=== PATIENT | female | born 1985 | race Caucasian/White ===

== ENCOUNTER → 2016-05-26 | Outpatient (CLI) | payer BC ==
[2016-05-26 16:42] LABS: BASOPHILS # (AUTO) 0.05 10*3/UL; BASOPHILS % (AUTO) 0.7 % (0-1); EOSINOPHILS % (AUTO) 2.8 % (0-8); HEMATOCRIT 41.3 % (37.0-47.0); HEMOGLOBIN 14.2 g/dL (12.0-16.0); IMM GRAN % (AUTO) 0.1 % (0-5); IMM GRAN# (AUTO) 0.01 10*3/UL; LYMPHOCYTES # (AUTO) 2.35 10*3/uL; LYMPHOCYTES % (AUTO) 32.3 % (10-50); MEAN CORPUSCULAR HEMOGLOBIN 31.4 PG (27-31); MEAN CORPUSCULAR HGB CONC 34.4 g/dL (33-37); MEAN PLATELET VOLUME 10.6 FL (7.4-12.2); MONOCYTES # (AUTO) 0.54 10*3/UL (0.3-0.8); MONOCYTES % (AUTO) 7.4 % (5-15); NEUTROPHILS # (AUTO) 4.12 10*3/UL; NEUTROPHILS % (AUTO) 56.7 % (50-80); RDW COEFFICIENT OF VARIATION 11.8 % (11.5-14.5); RED BLOOD COUNT 4.52 10^6/uL (4.20-5.40); WHITE BLOOD COUNT 7.27 10^3/uL (4.8-10.8)
[2016-05-26 17:14] LABS: PLATELET MORPHOLOGY COMMENT NORMAL MORPHOLOGY (NORM)
[2016-05-26 17:24] LABS: ERYTHROCYTE SEDIMENTATION RATE 3 MM/HR (0-20)
[2016-05-26 17:41] LABS: ASPARTATE AMINO TRANSFERASE 15 IU/L (8-39); BILIRUBIN,TOTAL 0.3 mg/dL (0.3-1.2); BLOOD UREA NITROGEN 13 mg/dL (7-22); BUN/CREATININE RATIO 16.25 (6-20); CALCIUM 9.5 mg/dL (8.7-10.7); CHLORIDE 106 meq/L (98-112); CREATININE 0.8 mg/dL (0.50-1.20); EST GLOMERULAR FILTRATION > 60 (>60 ml/min/1.73m(2)); GLUCOSE 99 mg/dL (78-110); POTASSIUM 4.1 meq/L (3.8-5.2); SODIUM 140 meq/L (135-145); TOTAL PROTEIN 6.4 g/dL (6.1-8.0)
== END ==
LOC: LAB 16:29
PROVIDERS: ATTEND Physician Assistant
DX: R51 Headache (principal)
CPT/HCPCS: 36415; 80053; 84443; 85025; 85652; 86038; 86140

== ENCOUNTER 2016-06-07 13:13 | Emergency (ER) | payer BC ==
[2016-06-07 13:38] LABS: BILIRUBIN,URINE NEGATIVE (NEG); CLARITY,URINE CLEAR (CLEAR); GLUCOSE, URINE (UA) NEGATIVE (NEG); LEUKOCYTE ESTERASE ,URINE NEGATIVE (NEG); NITRATE,URINE NEGATIVE (NEG); OCCULT BLOOD,URINE SMALL (NEG); PH,URINE 6.5 (5.0-8.5); PROTEIN,URINE NEGATIVE (NEG); UROBILINOGEN,URINE 0.2 EU/dL (0.2)
[2016-06-07 13:40] VITALS: RESP 14; TEMP 97.1
[2016-06-07 13:41] LABS: URINE SAMPLE TYPE CLEAN CATCH URINE
[2016-06-07 13:47] LABS: RBC,URINE 0-3 /hpf; WBC,URINE 0-1
[2016-06-07 13:48] LABS: SQUAMOUS EPITHELIAL CELL,UR RARE
[2016-06-07 13:50] LABS: BASOPHILS # (AUTO) 0.07 10*3/UL; BASOPHILS % (AUTO) 0.6 % (0-1); EOSINOPHILS % (AUTO) 0.7 % (0-8); HEMATOCRIT 43.5 % (37.0-47.0); HEMOGLOBIN 15.3 g/dL (12.0-16.0); IMM GRAN % (AUTO) 0.3 % (0-5); IMM GRAN# (AUTO) 0.04 10*3/UL; LYMPHOCYTES # (AUTO) 2.84 10*3/uL; LYMPHOCYTES % (AUTO) 22.6 % (10-50); MEAN CORPUSCULAR HEMOGLOBIN 32.3 PG (27-31); MEAN CORPUSCULAR HGB CONC 35.2 g/dL (33-37); MONOCYTES # (AUTO) 0.66 10*3/UL (0.3-0.8); MONOCYTES % (AUTO) 5.3 % (5-15); NEUTROPHILS # (AUTO) 8.87 10*3/UL; NEUTROPHILS % (AUTO) 70.5 % (50-80); RDW COEFFICIENT OF VARIATION 12.2 % (11.5-14.5); RED BLOOD COUNT 4.74 10^6/uL (4.20-5.40); WHITE BLOOD COUNT 12.57 10^3/uL (4.8-10.8)
[2016-06-07 13:51] LABS: PLATELET MORPHOLOGY COMMENT NORMAL MORPHOLOGY (NORM)
[2016-06-07 13:59] LABS: AMYLASE 84 U/L (30-110); ASPARTATE AMINO TRANSFERASE 17 IU/L (8-39); BILIRUBIN,TOTAL 0.3 mg/dL (0.3-1.2); BLOOD UREA NITROGEN 7 mg/dL (7-22); CALCIUM 9.6 mg/dL (8.7-10.7); CHLORIDE 104 meq/L (98-112); CREATININE 0.7 mg/dL (0.50-1.20); EST GLOMERULAR FILTRATION > 60 (>60 ml/min/1.73m(2)); GLUCOSE 92 mg/dL (78-110); POTASSIUM 3.7 meq/L (3.8-5.2); SODIUM 139 meq/L (135-145); TOTAL PROTEIN 7.2 g/dL (6.1-8.0)
[2016-06-07] MEDS ORDERED: Sodium Chloride 0.9% 1,000 ML PRIMARY IV ONE (14:08)
--- NOTE | 2016-06-07 16:10 | DI ---
HISTORY: Lower abdominal pain. COMPARISON: None available. TECHNIQUE: Contiguous axial enhanced images of the abdomen and pelvis were obtained from the lung ba ses through the ischial tuberosities. The images were then submitted for interpretation. FINDINGS: The heart size is normal, and the lung bases are clear. The liver and spleen are normal in size and contour and demonstrate no focal abnormalities. A contra cted gallbladder is identified. The pancreas and adrenal glands are normal. The kidneys are in demar omic position. There is no evidence of renal calculi, hydronephrosis, or solid renal masses. The visualized vascular structures are normal. There are inflammatory changes in the gastric mucosa and in the small and large bowel, more prominent in the lower abdominal small bowel; this can be seen in systemic inflammatory response and inflammat ory bowel disease. No perforation. Small reactive lymph nodes in the mesentery. There is minimal s tranding in the adnexal region, bilaterally. Could be inflammatory response. IMPRESSION: 1. There are inflammatory changes in the gastric mucosa and in the small and large bowel, more promin ent in the lower abdominal small bowel; this can be seen in systemic inflammatory response and inflam matory bowel disease. Please correlate with history. No perforation. 2. There is minimal stranding in the adnexal region, bilaterally. Could be inflammatory response. I f pelvic inflammatory disease is suspected, a pelvic ultrasound can be helpful to better characterize it. 3. Small reactive lymph nodes in the mesentery. 4. Contracted gallbladder. 5. No other acute findings.
--- NOTE | 2016-06-07 16:52 | PDOC ---
Abdomen/Flank HPI - General Chief Complaint: Genitourinary Complaint Stated Complaint: abd cramping Date Seen by Provider: 06/07/16 Time Seen by Provider: 13:15 Source: POSITIVE: Patient Exam Limitations: POSITIVE: No limitations Nurse's Notes Reviewed & Considered: Yes - History of Present Illness Initial Comments: The patient is a 31-year-old female. Patient complains of lower abdominal cramping for the past 2 weeks, which has gotten worse over the past 24 hours. Patient also complains of a "burning" throat pain. Patient states her last menstrual period was in early April and was smaller than normal. She states she had a negative test at home 5 days ago. She was on a hormonal implant for control up until March and then this was removed and she was started on control pills. She has had some diarrhea and some nausea. Her only abdominal surgery has been 2 sections. She is 2 para 2 aborta 1. No vomiting, melena, hematochezia, hematemesis, dysuria, hematuria or fevers. Body Location Affected: REPORTS: Abdomen Timing: REPORTS: Intermittent, Getting Worse Duration: >1 week (2 week history of lower abdominal", worse today. ") Severity: Moderate Quality: REPORTS: Cramping Abdominal Pain Onset Location: REPORTS: RLQ, LLQ Abdominal Pain Radiation: REPORTS: No radiation Context: REPORTS: None. DENIES: Activity, Bending, Coughing, Fall, Lifting, Near Fall, Rest, Sitting, Sleep, Standing, Turning, Emotional stress, Camping, Bad Food, Out of Country Travel, Other, Recent Surgery, Recent Trauma Modifying Factors: worse with: Nothing, Analgesics, Antacids, Breathing, Coughing, Defecating, Vomiting, Eating, Exercise, Lying down, Urinating, Palpation, Movement, Rest, Upright Position, Walking, Remaining Still, Other Associated Symptoms: REPORTS: Nausea, Diarrhea Similar Symptoms Previously: Yes (for the past 2 weeks; has above) Recent Care Received: REPORTS: Denies Any Prior Injuries Related to Current Complaint?: No - Patient Home Medications Home Medications: Home Medications Multivitamin [Flintstones] 1 each PO QD tab 07/11/14 Rizatriptan Benzoate [Maxalt Ice Maker] 1 tab PO as directed PRN #6 tab 03/10/16 Norgestimate-Ethinyl Estradiol [Ortho-Cyclen 28 Tablet] 1 each PO QD #1 tab Dicyclomine HCl [Bentyl] 20 mg PO Q6H #25 tablet 06/07/16 - Patient Allergies Allergies/Adverse Reactions: Allergies Allergy/AdvReac Type Severity Reaction Status Date / Time No Known Allergies Allergy Verified 06/07/16 13:19 Past Medical History - heen HEENT History: Denies History Additional HEENT History: wears glasses Cardiovascular History: Denies History Respiratory History: Denies History Additional Respiratory History: tobacco use Gastrointestinal History: Denies History Genitourinary History: Denies History Endocrine History: Denies History Musculoskeletal History: Denies History Prosthesis or Implant: No Neurological History: Denies History Blood Disorders: Denies History Psychiatric History: Denies History History of Sexually Transmitted Diseases: No Female Reproductive History: Denies History LMP: light abn period apr 2016, 2 weeks late for may 2016 Obstetrical History: Denies History Para: 2 Cancer History: Denies History In Past Year Been Physically Harmed or Verbally Threatened: No History of MDRO: No History of Other Communicable Diseases: No Tobacco Use: Current Every Day Smoker Alcohol Use: None Substance Use Type: None Previous Surgical History: Yes Type / Date of Surgery: C-SECTIONS X2 AND WISDOM TEETH EXTRACTION 05/30/12. Anesthesia Reactions: No Malignant Hyperthermia: No Significant Family History: No pertinent family hx Past Medical History Reviewed: Reviewed - No Changes ROS - Limitations ROS Limitations: No Limitations Constitution: REPORTS: Denies Symptoms Cardiovascular: REPORTS: Denies Cardiac Symptoms Respiratory: REPORTS: Denies Resp Symptoms Neurological: REPORTS: Denies Neuro Symptoms Gastrointestinal: REPORTS: Abdominal Pain Endocrine: REPORTS: Denies Symptoms Musculoskeletal: REPORTS: Denies MS Symptoms Genitourinary: REPORTS: Denies Symptoms Eyes: REPORTS: Denies Symptoms ENT: REPORTS: Denies Symptoms Skin: REPORTS: Denies Skin Symptoms Lympathic: REPORTS: Denies Lympathic Symptoms Immunologic: POSITIVE: Denies Symptoms Psychiatric: POSITIVE: Denies Psych Symptoms Abdominal/Flank Pain PE - General Appearance General Appearance: POSITIVE: Alert, Cooperative, No Acute Distress, No Evidence of Trauma - HEENT HEENT: POSITIVE: Head Inspection Nml, Eyes Inspection Nml, Ears Inspection Nml, Nose Inspection Nml, Oral/Dental Inspect. Nml, Pharynx Inspect. Nml, PERRL, EOMI - Neck Neck: POSITIVE: Normal Inspection, No Apparent Injury - Respiratory Respiratory: POSITIVE: No Respiratory Distress, Breath Sounds Normal, Chest Non- Tender - Cardiovascular Cardiovascular: POSITIVE: Regular Rate and Rhythm, Heart Sounds Normal, Equal Pulses, Strong Pulses Peripheral Pulses: Radial (R): 2+, Radial (L): 2+ - Chest Chest: POSITIVE: Non Tender - Abdomen Abdomen: Soft: (All Quadrants), Normal Bowel Sounds: (All Quadrants), Denies Tenderness: (RUQ), (LUQ), No Splenomegaly: (All Quadrants), No Hepatomegaly: ( All Quadrants), No Guarding: (All Quadrants), No Rebound: (All Quadrants), No Palpable Pulse: (All Quadrants), No Palpabale Mass: (All Quadrants), No Distention: (All Quadrants), No Rigidity: (All Quadrants), Tenderness Noted: ( LLQ), (RLQ) Additional Abdominal Details: Abdominal examination shows bowel sounds to be active. Patient does express some discomfort on palpation over the right and left lower abdomen, with no masses or organomegaly or rebound. 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 Abdomen Progress - Results Reviewed by me Xrays/CTs/US Reviewed by me: Yes Discussed with Radiologist: Yes Radiology Findings: CT scan abdomen and pelvis with IV contrast shows "inflammatory changes in the gastric mucosa, small and large bowel more prominent in the lower abdomen small bowel." No perforation. No other abnormalities seen except for some small reactive lymph nodes in the mesentery. Lab Results Reviewed: Yes (WBC 12,570, test negative, strep screen negative) Lab Results:: Laboratory Results 06/07/16 06/07/16 Range/Units 13:30 13:44 WBC 12.57 H (4.8-10.8) 10^3/uL RBC 4.74 (4.20-5.40) 10^6/uL Hgb 15.3 (12.0-16.0) g/dL Hct 43.5 (37.0-47.0) % MCV 91.8 (81-99) FL MCH 32.3 H (27-31) PG MCHC 35.2 (33-37) g/dL RDW Std Deviation 40.3 (39-50) fL RDW Coeff of Demario 12.2 (11.5-14.5) % Plt Count 243 (140-350) 10*3/uL MPV 10.0 (7.4-12.2) FL Immature Gran % (Auto) 0.3 (0-5) % Neut % (Auto) 70.5 (50-80) % Lymph % (Auto) 22.6 (10-50) % [place] % (Auto) 5.3 (5-15) % Eos % (Auto) 0.7 (0-8) % Baso % (Auto) 0.6 (0-1) % Immature Gran # (Auto) 0.04 10*3/UL Neut # (Auto) 8.87 10*3/UL Lymph # (Auto) 2.84 10*3/uL [place] # (Auto) 0.66 (0.3-0.8) 10*3/UL Eos # (Auto) 0.09 10*3/UL Baso # (Auto) 0.07 10*3/UL WBC Morphology Comment Normal morphology (NORM) Plt Morphology Comment Normal morphology (NORM) RBC Morph Comment Normal morphology (NORM) Sodium 139 (135-145) meq/L Potassium 3.7 L (3.8-5.2) meq/L Chloride 104 (98-112) meq/L Carbon Dioxide 26 (23-33) meq/L Anion Gap 9 (5-20) BUN 7 (7-22) mg/dL Creatinine 0.7 (0.50-1.20) mg/dL Estimated GFR > 60 (>60 ml/min/1.73m(2)) BUN/Creatinine Ratio 10.00 (6-20) Glucose 92 (78-110) mg/dL Calculated Osmolality 285.0 (267-292) mOsm/kg Calcium 9.6 (8.7-10.7) mg/dL Total Bilirubin 0.3 (0.3-1.2) mg/dL AST 17 (8-39) IU/L ALT 25 (9-52) IU/L Alkaline Phosphatase 78 (38-126) IU/L Total Protein 7.2 (6.1-8.0) g/dL Albumin 4.5 (3.5-4.8) g/dL Globulin 2.8 (2.50-4.10) g/dL Albumin/Globulin Ratio 1.60 (1.3-2.0) mg/g Amylase 84 (30-110) U/L Lipase 75 (23-300) IU/L Serum HCG, Qual Negative Ur Collection Type Clean catch urine Urine Color Yellow Urine Clarity Clear (CLEAR) Urine pH 6.5 (5.0-8.5) Ur Specific [place] 1.010 (1.005-1.030) Urine Protein Negative (NEG) mg/dl Urine Glucose (UA) Negative (NEG) mg/dL Urine Ketones Negative (NEG) Urine Occult Blood Small H (NEG) Urine Nitrate Negative (NEG) Urine Bilirubin Negative (NEG) Urine Urobilinogen 0.2 (0.2) EU/dL Ur Leukocyte Esterase Negative (NEG) Urine RBC 0-3 (NONE) /hpf Urine WBC 0-1 (NONE) Ur Squamous Epith Cells Rare (NONE) Ur Renal Epithelial Cell None (NONE) Urine Crystals None Urine Bacteria None (NONE) Urine Casts None (NONE) Urine Mucus None (NONE) Urine Trichomonas None (NONE) Urine Yeast None (NONE) Ur Culture Indicated? Culture not set - Patient's Progress Pain Medication Addressed: POSITIVE: Yes (Trial of Bentyl and Zantac) School/Work Release Addressed: POSITIVE: Not Applicable Re-examine Time: 16:25 Status: POSITIVE: Unchanged, Re-Examined - Consult Counseled: POSITIVE: Patient, RE: Lab Results, RE: Radiology Results, RE: DX, RE : Need for F/U Patient Care Time - Estimated PCT Patient Care Time (In Minutes): 45 Vital Signs - Recent Vital Signs Vital Signs: Vital Signs (Last 8 hours) Temp Pulse Resp BP Pulse Ox 06/07/16 13:14 97.1 F 105 H 14 127/88 98 - VS Reviewed Vital Signs Reviewed: Yes Discharge Clinical Impression: Abdominal pain Discharge Disposition: Discharged to Home Condition: Stable Prescriptions / Orders: Dicyclomine HCl [Bentyl] 20 mg PO Q6H #25 tablet Patient Instructions Given at Discharge: Abdominal Pain (ED) Additional Instructions: Your blood tests are normal except for slightly elevated white blood cell count. Urinalysis is normal. CT scan of the abdomen and pelvis shows inflammatory changes in the stomach, and small and large bowel, especially the lower abdominal small bowel. This can be seen in an inflammatory bowel disease , such as Crohn's disease. I would recommend you follow-up with your primary care provider; he or she may recommend an upper and lower endoscopic evaluation of the bowel. In the meantime, try Zantac dfoa-gos-utptala, every 12 hours. Bentyl, after each meal and before bedtime. You are not and I think the fact that you missed your period in May is probably due to hormonal changes you experienced when you switched from your implantable control device to oral control pills in March. Please return to the emergency room anytime if condition worsens. Otherwise, follow-up with your primary care provider. Follow Up With: JESIKA JAIMES [Primary Care Provider] - (Instructions as above. Return here anytime if condition worsens in any way.)
== END 2016-06-07 16:32 | disposition home or self-care (01) ==
LOC: ER 13:13
DX: R10.31 Right lower quadrant pain (principal); R10.32 Left lower quadrant pain; J02.9 Acute pharyngitis, unspecified
CPT/HCPCS: 36415; 74177; 80053; 81001; 81003; 82150; 83690; 84703; 85025; 87802; 96360; 96361; 99283; J7030